=== PATIENT | male | born 1985 | race Caucasian/White ===

== ENCOUNTER 2017-11-27 23:06 | Emergency (ER) | payer MEDICAID ==
[2017-11-27 23:25] LABS: URINE MICROSCOPIC INDICATED? YES; URINE SOURCE RANDOM
[2017-11-27 23:28] LABS: URINE BILIRUBIN SMALL (NEGATIVE); URINE BLOOD LARGE (NEGATIVE); URINE GLUCOSE (UA) NEGATIVE (NEGATIVE); URINE KETONE NEGATIVE (NEGATIVE); URINE LEUKOCYTE ESTERASE NEGATIVE (NEGATIVE); URINE NITRATE NEGATIVE (NEGATIVE); URINE PROTEIN TRACE mg/dL (NEGATIVE); URINE UROBILINOGEN 0.2 E.U./dL (0.2 - 1.0)
[2017-11-27 23:32] LABS: URINE BACTERIA OCCASIONAL /hpf (NONE SEEN); URINE CLARITY CLOUDY (CLEAR); URINE COLOR BROWN; URINE EPITHELIAL CELLS OCCASIONAL /lpf (FEW); URINE RBC 25-50 /hpf (0-5); URINE WBC 0-2 /hpf (0-5)
--- NOTE | 2017-11-28 00:25 | ED Physician Chart ---
ED Chief Complaint/HPI - Patient Information Date Seen:: 11/28/17 Time Seen:: 23:20 Chief Complaint:: hematuria flank pain History of Present Illness:: location: general quality: hematuria, flank pain severity: mild duration: one day context: pt reports that earlier in the day today he had an episode of hematuria. also had some bilateral flank pain which was mild in intensity. has had severe flank pain about one year ago and was diagnosed with kidney stone. since then has not had any flank pain. no fever, no chest pain, no SOB. pt wonders if he is having another kidney stone but says the amount of pain he is having is much less than he had last year. mod factors: none assoc s/s: none PSH: none hx from pt. Allergies:: Allergies Allergy/AdvReac Type Severity Reaction Status Date / Time No Known Allergies Allergy Verified 11/27/17 23:13 Vitals:: Vital Signs - 8 hr 11/27/17 23:10 Temp 98.0 F HR 76 RR 16 BP 150/90 O2 Sat % 98 Review:: Nurse's Note Reviewed ED Review of Systems - Review of Systems General/Constitutional: No fever, No chills, No weight loss, No weakness, No diaphoresis, No edema, No loss of appetite Skin: No skin lesions, No rash, No bruising Head: No headache, No light-headedness Eyes: No loss of vision, No pain, No diplopia ENT: No earache, No nasal drainage, No sore throat, No tinnitus Neck: No neck pain, No swelling, No thyromegaly, No stiffness, No mass noted Cardio Vascular: No chest pain, No palpitations, No PND, No orthopnea, No edema Pulmonary: No SOB, No cough, No sputum, No wheezing GI: No nausea, No vomiting, No diarrhea, No pain, No melena, No hematochezia, No constipation, No hematemesis G/U: No dysuria, No frequency, Hematuria, Other (mild bilateral flank pain) Musculoskeletal: No bone or joint pain, No back pain, No muscle pain Endocrine: No polyuria, No polydipsia Psychiatric: No prior psych history, No depression, No anxiety, No suicidal ideation Hematopoietic: No bruising, No lymphadenopathy Allergic/Immuno: No urticaria, No angioedema Neurological: No syncope, No focal symptoms, No weakness, No paresthesia, No headache, No seizure, No dizziness, No confusion, No vertigo ED Past Medical History - Past Medical History Past Medical History: Renal stone Family History: None Social History: Non Smoker, No Alcohol, No Drug Use, Surgical History: None Psychiatricy History: None Medication: None Family Medical History - Family Member Mother History Unknown: Yes ED Physical Exam - Physical Examination General/Constitutional: Awake, Well-developed, well-nourished, Alert, No distress, GCS 15, Non-toxic appearing, Ambulatory Head: Atraumatic Eyes: Lids, conjuctiva normal, PERRL, EOMI Skin: Nl inspection, No rash, No skin lesions, No ecchymosis, Well hydrated, No lymphadenopathy ENMT: External ears, nose nl, Nasal exam nl, Lips, teeth, gums nl Neck: Nontender, Full ROM w/o pain, No JVD, No nuchal rigidity, No bruit, No mass, No stridor Respiratory: Nl effort/Exclusion, Clear to Auscultation, No Wheeze/Rhonchi/Rales Cardio Vascular: RRR, No murmur, gallop, rubs, NL S1 S2 GI: No tenderness/rebounding/guarding, Normal BS's, No mass/bruits, No McBurney tenderness : No CVA tenderness (pt reports very mild bilateral CVA tenderness, no ecchymosis, no wound at bilateral flank) Extremities: No tenderness or effusion, Full ROM, normal strength in all extremities, No edema, Normal digits & nails Neuro/Psych: Alert/oriented, Normal sensory exam, Normal motor strength, Judgement/insight normal, Mood normal, Normal gait, No focal deficits Misc: Normal back, No paraspinal tenderness ED Labs/Radiology/EKG Results - Lab Results Results: Laboratory Tests 11/27/17 23:20 Urine Source RANDOM Urine Color BROWN Urine Clarity CLOUDY Urine pH 6.0 Ur Specific [place] 1.025 Urine Protein TRACE Urine Glucose (UA) NEGATIVE Urine Ketones NEGATIVE Urine Blood LARGE H Urine Nitrate NEGATIVE Urine Bilirubin SMALL H Urine Urobilinogen 0.2 Ur Leukocyte Esterase NEGATIVE Urine RBC 25-50 H Urine WBC 0-2 Ur Epithelial Cells OCCASIONAL Urine Bacteria OCCASIONAL Laboratory Tests 11/27/17 11/28/17 11/28/17 23:20 00:34 00:34 WBC 8.6 RBC 5.44 Hgb 15.4 Hct 46.3 MCV 85.0 MCH 28.3 MCHC Differential 33.3 RDW 12.4 Plt Count 333 MPV 8.1 Neutrophils % 64.6 Lymphocytes % 26.9 Monocytes % 5.9 Eosinophils % 2.4 Basophils % 0.2 ESR PT 10.1 INR 0.97 Sodium Potassium Chloride Carbon Dioxide Anion Gap BUN Creatinine Est GFR ( Amer) Est GFR (Non-Af Amer) BUN/Creatinine Ratio Glucose Calcium Total Bilirubin AST ALT Alkaline Phosphatase Total Protein Albumin Globulin Albumin/Globulin Ratio Urine Source RANDOM Urine Color BROWN Urine Clarity CLOUDY Urine pH 6.0 Ur Specific [place] 1.025 Urine Protein TRACE Urine Glucose (UA) NEGATIVE Urine Ketones NEGATIVE Urine Blood LARGE H Urine Nitrate NEGATIVE Urine Bilirubin SMALL H Urine Urobilinogen 0.2 Ur Leukocyte Esterase NEGATIVE Urine RBC 25-50 H Urine WBC 0-2 Ur Epithelial Cells OCCASIONAL Urine Bacteria OCCASIONAL 11/28/17 11/28/17 00:34 00:34 WBC RBC Hgb Hct MCV MCH MCHC Differential RDW Plt Count MPV Neutrophils % Lymphocytes % Monocytes % Eosinophils % Basophils % ESR 7 PT INR Sodium 137 Potassium 3.7 Chloride 104 Carbon Dioxide 25.8 Anion Gap 10.9 BUN 16 Creatinine 0.8 Est GFR ( Amer) > 60.0 Est GFR (Non-Af Amer) > 60.0 BUN/Creatinine Ratio 20.0 Glucose 101 Calcium 10.0 Total Bilirubin 0.3 AST 15 ALT 21 Alkaline Phosphatase 64 Total Protein 7.6 Albumin 4.6 Globulin 3.0 Albumin/Globulin Ratio 1.5 Urine Source Urine Color Urine Clarity Urine pH Ur Specific [place] Urine Protein Urine Glucose (UA) Urine Ketones Urine Blood Urine Nitrate Urine Bilirubin Urine Urobilinogen Ur Leukocyte Esterase Urine RBC Urine WBC Ur Epithelial Cells Urine Bacteria - Radiology Results Results: CT abdomen and pelvis nonobstructing bilateral renal calculi no ureteral calculi no bladder calcifications no CT evidence of appendicitis nonspecific bowel gas pattern with mild retained stool no free fluid or free air small periumbilical hernia containing fat RAD READ ED Assessment - Assessment General Assessment: pt stable while in ER. ED Septic Shock - . Is Septic Shock (SBP<90, OR Lactate>4 mmol\L) present?: No - <6hrs of presentation: Vital Signs: Vital Signs - 8 hr 11/27/17 23:10 Temp 98.0 F HR 76 RR 16 BP 150/90 O2 Sat % 98 ED Reassessment (Disposition) - Reassessment Reassessment:: pt in stable condition while in ER Reassessment Condition:: Improved - Diagnosis Diagnosis:: hematuria secondary to bilateral renal stones - Aftercare/Follow up Instructions Aftercare/Follow-Up Instructions:: Refer to Discharge Instructions Notes:: FU with clinic physician tomorrow for recheck - Patient Disposition Discharge/Transfer:: Home Condition at Disposition:: Stable, Improved
[2017-11-28] MEDS ORDERED: Sodium Chloride 0.9% 1,000 ML IV SCH (00:30)
[2017-11-28 00:44] LABS: % BASOPHILS 0.2 % (0.0-2.0); % EOSINOPHILS 2.4 % (0.0-5.0); % LYMPHOCYTES 26.9 % (20.0-50.0); % MONOCYTES 5.9 % (2.0-10.0); % NEUTROPHILS 64.6 % (40.0-80.0); EOSINOPHILE ABSOLUTE 0.2 Th/cmm (0.1-0.4); HEMATOCRIT 46.3 % (41.0-60); HEMOGLOBIN 15.4 gm/dL (12-16); LYMPHOCYTE ABSOLUTE 2.3 Th/cmm (1.5-3.0); MEAN CORPUSCULAR HEMOGLOBIN 28.3 pg (26.0-30.0); MEAN CORPUSCULAR HGB CONC 33.3 pg (28.0-36.0); MEAN PLATELET VOLUME 8.1 fl; MONOCYTE ABSOLUTE 0.5 Th/cmm (0.3-1.0); NEUTROPHILE ABSOLUTE 5.6 Th/cmm (1.8-8.0); PLATELET COUNT 333 Th/cmm (150-400); RED BLOOD COUNT 5.44 Mil/cmm (4.30-5.70); RED CELL DISTRIBUTION WIDTH 12.4 % (11.5-20.0); WHITE BLOOD COUNT 8.6 Th/cmm (4.8-10.8)
[2017-11-28 00:56] LABS: INR 0.97 (0.5-1.4); PROTHROMBIN TIME (TEST) 10.1 SECONDS (9.5-11.5)
[2017-11-28 00:58] LABS: ALB/GLOB RATIO 1.5 (1.0-1.8); ALBUMIN 4.6 gm/dL (4.2-5.5); ALKALINE PHOSPHATASE 64 U/L (34-104); ANION GAP 10.9 (7.0-16.0); BILIRUBIN,TOTAL 0.3 mg/dL (0.3-1.0); BUN - UREA NITROGEN 16 mg/dL (7-25); CARBON DIOXIDE 25.8 mEq/L (21.0-31.0); CHLORIDE 104 mEq/L (98-107); CREATININE - SERUM 0.8 mg/dL (0.7-1.3); GFR AFRICAN-AMERICAN > 60.0 ml/min (>90); GFR NON AFRICAN-AMERICAN > 60.0 ml/min; GLUCOSE 101 mg/dL (70-105); POTASSIUM SERUM 3.7 mEq/L (3.5-5.1); SGOT 15 U/L (13-39); SGPT/ALT 21 U/L (7-52); SODIUM SERUM 137 mEq/L (136-145); TOTAL PROTEIN,SERUM 7.6 gm/dL (6.0-8.3)
--- NOTE | 2017-11-28 08:08 | Diagnostic Imaging Report ---
CT abdomen and pelvis without intravenous contrast Indication: Flank pain, rule out renal stones Comparison: Previous CT abdomen and pelvis on 12/28/2014, Technique: Axial images were obtained from the lung bases to the bilateral proximal femurs without IV contrast. Coronal reconstructions were made. total DLP: 940, CTD I 17 FINDINGS: There is 3 mm pleural-based nodularity at the right lung base. Similar finding was seen on prior exam and is suggestive of benign etiology. Assessment of solid organs is limited due to lack of IV contrast. No evidence of focal hepatic, splenic, or pancreatic lesions. No focal adrenal lesions. Nonobstructive bilateral renal calculi are noted left greater than right with largest on the left measuring 4 mm. No evidence of hydronephrosis. Minimal diverticulosis is noted without evidence of diverticulitis. No evidence of appendicitis. No evidence of free fluid or free air. Small fat-containing umbilical hernia is noted. Degenerative changes of the spine are noted. IMPRESSION: Nonobstructive bilateral renal calculi left greater than right. Minimal diverticulosis without evidence of diverticulitis. 3 mm pleural-based nodularity in the right lung base. Similar finding was seen on prior exam. Stability is most suggestive of benign etiologies. Consider follow-up is needed..
== END 2017-11-28 02:20 | disposition home or self-care (01) ==
LOC: ER 23:06
DX: N20.0 Calculus of kidney (principal); R31.9 Hematuria, unspecified
CPT/HCPCS: 36415-UA; 80053-TC; 81001-TC; 85025-TC; 85610-TC; 85652-TC; 87086-90; J7030